=== PATIENT | female | born 1950 | race Caucasian/White ===

== ENCOUNTER 2025-03-19 17:10 | Emergency (ER) | payer MEDICARE ==
[~2025-03-19] VITALS: Ht 162.6 cm; Wt 68.0 kg
[2025-03-19 17:40] VITALS: BP 136/73; O2SAT 98
== END 2025-03-19 17:45 | disposition left against medical advice (07) ==
LOC: ER 17:10
DX: L76.34 Postprocedural seroma of skin and subcutaneous tissue following other procedure (principal); G81.94 Hemiplegia, unspecified affecting left nondominant side
CPT/HCPCS: A4606; A4663